=== PATIENT | male | born 1995 | race Asian ===

== ENCOUNTER 2017-06-21 20:34 | Emergency (ER) | payer OTHER ==
[2017-06-21 20:59] VITALS: BP 127/78
[2017-06-21] MEDS ORDERED: Lidocaine 2% VISCOUS* 15 ML UDC PO ONE (21:10)
[2017-06-21] MEDS ORDERED: Amoxicillin PO (*) 500 MG CAP PO ONE (21:11)
[2017-06-21] MEDS ORDERED: Ondansetron ODT TAB* 4 MG PO ONE (21:12)
[2017-06-21] MEDS ORDERED: Ondansetron ODT TAB* 4 MG ONE (21:19)
--- NOTE | 2017-06-21 21:19 | UC ---
Throat Pain/Nasal Santosh HPI - HPI Summary HPI Summary: Complains of subjective fever, body aches, nausea, sore throat, mild cough, mild ear pain, mild exertional SOB, mild SOLER 2 days. Denies neck stiffness, rash, CP, abdominal pain him a change in urine or BM. Medical history is none. - History of Current Complaint Chief Complaint: UCGeneralIllness Stated Complaint: SORE THROAT, ACHES, AND NAUSEA Time Seen by Provider: 06/21/17 20:37 Hx Obtained From: Patient Onset/Duration: Gradual Onset Severity: Mild Pain Intensity: 6 Pain Scale Used: 0-10 Numeric Cough: Nonproductive Associated Signs & Symptoms: Positive: Fever, Vomiting - Epiglottits Risk Factors Epiglottis Risk Factors: Negative - Allergies/Home Medications Allergies/Adverse Reactions: Allergies Allergy/AdvReac Type Severity Reaction Status Date / Time No Known Allergies Allergy Verified 06/21/17 20:59 Home Medications: Home Medications D-Methorphan/PE/Acetaminophen [Day Time Cold-Flu Liquid] 06/21/17 [History] Ibuprofen [Advil] 200 mg PO 06/21/17 [History] PMH/Surg Hx/FS Hx/Imm Hx - Surgical History Surgical History: None - Social History Alcohol Use: None Substance Use Type: None Smoking Status (MU): Never Smoked Tobacco Review of Systems Constitutional: Fever, Chills, Fatigue Skin: Negative Eyes: Negative ENT: Sore Throat, Nasal Discharge Respiratory: Shortness Of Breath, Cough Cardiovascular: Negative Gastrointestinal: Vomiting, Diarrhea, Nausea Genitourinary: Negative Motor: Negative Neurovascular: Negative Musculoskeletal: Myalgia Neurological: Negative Psychological: Negative All Other Systems Reviewed And Are Negative: Yes Physical Exam Triage Information Reviewed: Yes Appearance: Well-Appearing Vital Signs: Initial Vital Signs Temp 98.8 F 06/21/17 20:53 Pulse 106 06/21/17 20:53 Resp 18 06/21/17 20:53 BP 127/78 06/21/17 20:53 Pulse Ox 95 06/21/17 20:53 Vital Signs Reviewed: Yes Eye Exam: Normal Eyes: Positive: Conjunctiva Clear ENT: Positive: Pharyngeal erythema, Nasal drainage, TMs normal. Negative: Tonsillar exudate, Sinus tenderness Neck exam: Normal Respiratory Exam: Normal Cardiovascular Exam: Normal Abdominal Exam: Normal Musculoskeletal Exam: Normal Neurological Exam: Normal Psychological Exam: Normal Skin Exam: Normal Throat Pain/Nasal Course/Dx - Course Course Of Treatment: amox, zofran - Differential Dx/Diagnosis Provider Diagnoses: strep throat. nausea Discharge - Sign-Out/Discharge Documenting (check all that apply): Discharge/Admit/Transfer - Discharge Plan Condition: Stable Disposition: HOME Patient Education Materials: Strep Throat (ED), Acute Nausea and Vomiting (ED) Referrals: No Primary Care Phys,NOPCP [Primary Care Provider] - - Billing Disposition and Condition Condition: STABLE Disposition: HOME
== END 2017-06-21 21:25 | disposition home or self-care (01) ==
LOC: UCEAST 20:34
DX: J02.0 Streptococcal pharyngitis (principal); R11.2 Nausea with vomiting, unspecified
CPT/HCPCS: 87502; 87651; 99202; A9270-GY; G0463

== ENCOUNTER 2017-06-24 10:18 | Emergency (ER) | payer OTHER ==
[2017-06-24 10:27] VITALS: BP 140/77
--- NOTE | 2017-06-24 10:52 | UC ---
Throat Pain/Nasal Santosh HPI - HPI Summary HPI Summary: This is an otherwise healthy 21 yo male who was diagnosed with strep pharyngitis 06/21 by rapid strep testing and started on amoxicillin 500 mg twice daily and has been taking it as directed. His symptoms have become worse rather than better since initiating antibiotics. His ST is worse, fevers have been difficult to control. Very little po intake. He feels weak and faint. - History of Current Complaint Chief Complaint: UCRespiratory Stated Complaint: SORE THROAT Pain Intensity: 8 - Allergies/Home Medications Allergies/Adverse Reactions: Allergies Allergy/AdvReac Type Severity Reaction Status Date / Time No Known Allergies Allergy Verified 06/24/17 10:27 PMH/Surg Hx/FS Hx/Imm Hx Previously Healthy: Yes - Surgical History Surgical History: None - Family History Known Family History: Positive: None - Social History Alcohol Use: None Substance Use Type: None Smoking Status (MU): Never Smoked Tobacco Review of Systems Constitutional: Fever, Chills, Fatigue Skin: Negative Eyes: Negative ENT: Sore Throat Respiratory: Negative Cardiovascular: Negative Gastrointestinal: Negative Genitourinary: Negative Motor: Negative Neurovascular: Negative Musculoskeletal: Negative Neurological: Negative Psychological: Negative Is Patient Immunocompromised?: No All Other Systems Reviewed And Are Negative: Yes Physical Exam Triage Information Reviewed: Yes Appearance: Ill-Appearing Vital Signs: Initial Vital Signs Temp 100.3 F 06/24/17 10:22 Pulse 94 06/24/17 10:22 Resp 18 06/24/17 10:22 BP 140/77 06/24/17 10:22 Pulse Ox 100 06/24/17 10:22 Vital Signs Reviewed: Yes ENT: Positive: Pharyngeal erythema, Tonsillar swelling, Tonsillar exudate Neck: Positive: Supple, Tenderness @ - cervical nodes, Enlarged Nodes @ - anterior cervical Respiratory: Positive: Lungs clear, Normal breath sounds. Negative: Crackles, Rhonchi, Wheezing Cardiovascular: Positive: RRR, No Murmur Musculoskeletal Exam: Normal Neurological Exam: Normal Psychological Exam: Normal Skin Exam: Normal Throat Pain/Nasal Course/Dx - Course Course Of Treatment: 21 yo male with recent diagnosis of strep pharyngitis with worsening symptoms despite appropriate antibiotics. Recommend proceeding the ER for IV fluids, imaging to eval for peritonsillar abscess, blood cultures and throat culture to eval for resistent organism. He is accompanied by his mother who will drive and is in agreement with plan. - Differential Dx/Diagnosis Differential Diagnosis/HQI/PQRI: Laryngitis, Peritonsillar Abscess, Pharyngitis , Tonsillitis Provider Diagnoses: 1. Strep pharyngitis with possible peritonsillar abscess Discharge - Sign-Out/Discharge Documenting (check all that apply): Discharge/Admit/Transfer - Discharge Plan Condition: Stable Disposition: HOME Patient Education Materials: Tonsillitis (ED) Referrals: No Primary Care Phys,NOPCP [Primary Care Provider] - Additional Instructions: PLEASE PROCEED TO THE EMERGENCY DEPARTMENT FOR EVALUATION OF PERITONSILLAR ABSCESS - Billing Disposition and Condition Condition: STABLE Disposition: HOME
== END 2017-06-24 10:49 | disposition home or self-care (01) ==
LOC: UCEAST 10:18
DX: J02.0 Streptococcal pharyngitis (principal)
CPT/HCPCS: 99212; G0463

== ENCOUNTER 2017-06-24 11:06 | Observation (INO) | payer OTHER ==
[2017-06-24 11:44] LABS: Hematocrit 44 % (42-52); Hemoglobin 15.1 g/dl (14.0-18.0); Mean Corpuscular HGB Conc 34 g/dl (31-36); Mean Corpuscular Hemoglobin 30 pg (27-31); Mean Corpuscular Volume 88 fL (80-94); Mean Platelet Volume 7.9 um3 (7.4-10.4); Platelet Count 172 10^3/ul (150-450); Red Blood Count 5.01 10^6/ul (4.0-5.4); Red Cell Distribution Width 13 % (10.5-15)
[2017-06-24] MEDS ORDERED: NS 0.9% 1000 ML* 1,000 ML IV ONE (11:45)
[2017-06-24] MEDS ORDERED: Ketorolac INJ* 30 MG/ML 1 ML VIAL IV PUSH ONE (11:45)
[2017-06-24] MEDS ORDERED: methylPREDNISolone 125 MG* 2 ML VIAL IV ONE (11:45)
[2017-06-24] MEDS ORDERED: cefTRIAXone(*) 1 GM in NS 0.9% 50 ML* 50 ML IVPB ONE (11:51)
[2017-06-24 12:00] LABS: EGFR Non-African American 113.4 (>60)
[2017-06-24 12:06] LABS: ABS Basophils 0 10^3/ul (0-0.2); ABS Eosinophils 0 10^3/ul (0-0.6); ABS Lymphocytes 1.2 10^3/ul (1.0-4.8); ABS Monocytes 1.7 10^3/ul (0-0.8); ABS Nucleated RBC 0 10^3/ul; Eosinophil % 0.2 % (0-6); Lymphocyte % 8.4 % (25-47); Nucleated Red Blood Cells % 0
[2017-06-24] MEDS ORDERED: Azithromycin TAB* 250 MG PO ONE (12:33)
[2017-06-24] MEDS ORDERED: PROCHLORPERAZINE INJ 5 MG/ML 2 ML VIAL IV ONE (13:32)
[2017-06-24] MEDS ORDERED: Metoclopramide IV* 5 MG/ML 2 ML VIAL IV ONE (13:34)
[2017-06-24] MEDS ORDERED: Metoclopramide IV* 5 MG/ML 2 ML VIAL ONE (13:35)
[2017-06-24] MEDS ORDERED: Iohexol 300* (CONTRAST) 10 ML SDV IV ONE (13:42)
--- NOTE | 2017-06-24 14:33 | RAD ---
INDICATION: Tonsillitis x2 weeks. COMPARISON: There are no prior studies available for comparison. TECHNIQUE: A CT scan of the neck was performed with intravenous contrast following intravenous injection of 50 ml of Omnipaque 300 nonionic contrast. Contiguous axial sections were obtained from the skull base through the lung apices. Images were reconstructed in the coronal and sagittal planes. FINDINGS: The tonsils appear enlarged bilaterally and nearly touch in the midline. No abscess is seen. The main portion of the epiglottis appears normal in size although the aryepiglottic folds appear thickened suggesting the possibly of early epiglottitis. No retropharyngeal soft tissue swelling is seen. There are mildly enlarged bilateral internal jugular chain lymph nodes measuring up to 1.3 cm in transverse dimension in the upper portion of the neck. The parotid and submandibular glands appear to be within normal limits. The thyroid gland appears normal. The lung apices appear clear. The paranasal sinuses and mastoid air cells appear clear. No significant focal osseous abnormality is seen. IMPRESSION: 1. THE TONSILS ARE ENLARGED, NO ABSCESS IS SEEN. 2. THERE IS THICKENING OF THE ARYEPIGLOTTIC FOLDS SUGGESTING THE POSSIBILITY OF EARLY EPIGLOTTITIS. 3. MILDLY ENLARGED BILATERAL INTERNAL JUGULAR CHAIN LYMPH NODES.
[2017-06-24] MEDS ORDERED: Acetaminophen TAB* 325 MG PO PRN (15:22)
[2017-06-24] MEDS ORDERED: Albuterol 2.5 MG/3 ML NEB.SOL* (0.083%) INH PRN (15:22)
[2017-06-24] MEDS ORDERED: Ondansetron TAB* 4 MG PO PRN (15:26)
[2017-06-24] MEDS ORDERED: Ibuprofen TAB* 200 MG PO PRN (15:26)
[2017-06-24] MEDS ORDERED: NS 0.9% 1000 ML* 1,000 ML IV SCH (15:30)
--- NOTE | 2017-06-24 17:02 | ED ---
Throat Pain/Nasal Congestion - HPI Summary HPI Summary: Patient here with worsening of sore throat and swelling past 3 days despite starting amoxicillin. He was seen on June 21 [facility] and diagnosed with strep throat. He's been taking amoxicillin since however his throat pain and swelling continue to worsen. Today his voice is slightly muffled and he has a fever of 101 at triage. He had a fever of 103 Fahrenheit yesterday. He also complains of headache general achiness and decreased appetite. He has not had antipyretic prior to arrival. He is not been able to eat much however his mom is here to visit him now that he sick and she is making him drink water as much as he can. Furthermore he admits that he engages in oral sex with men. Reports every time he hooks up with a new partner he gets a sore throat the last for a few days to a week. He treats it with ibuprofen and it seems to improve. He's had sore throat on and off over the last 4 weeks with this pattern and has had no testing for his sore throat. Admits as well to oral and anal sex. - History of Current Complaint Chief Complaint: EDThroatPain Time Seen by Provider: 06/24/17 11:30 Hx Obtained From: Patient - Allergies/Home Medications Allergies/Adverse Reactions: Allergies Allergy/AdvReac Type Severity Reaction Status Date / Time No Known Allergies Allergy Verified 06/24/17 11:12 Home Medications: Home Medications Acetaminophen TAB* [Tylenol TAB*] 650 mg PO Q6H PRN 06/24/17 [History Confirmed 06/24/17] Ibuprofen TAB* [Advil TAB*] 400 mg PO Q8H PRN 06/24/17 [History Confirmed ] Ondansetron TAB* [Zofran 4 MG Tab*] 4 mg PO Q6H PRN 06/24/17 [History Confirmed 06/24/17] PMH/Surg Hx/FS Hx/Imm Hx Previously Healthy: Yes Endocrine/Hematology History: Denies: Hx Diabetes, Autoimmune Disease Cardiovascular History: Denies: Hx Hypertension History: Denies: Hx Renal Disease - Immunization History Immunizations Up to Date: Yes Infectious Disease History: No Infectious Disease History: Denies: Traveled Outside the [place] in Last 30 Days - Family History Known Family History: Positive: None - Social History Occupation: Student - [employer] Lives: Dormitory/Roommates Alcohol Use: None Hx Substance Use: No Substance Use Type: Reports: None Hx Tobacco Use: No Smoking Status (MU): Never Smoked Tobacco Review of Systems Positive: Fever, Chills, Fatigue Eyes: Negative Positive: Sore Throat, Ear Ache. Negative: Epistaxis, Dental Pain, Nasal Discharge Cardiovascular: Negative Respiratory: Negative Positive: Nausea Genitourinary: Negative Negative: burning, dysuria, discharge, frequency Musculoskeletal: Other - generalized achiness Skin: Negative Positive: Headache. Negative: Weakness, Paresthesia, Numbness, Syncope, Slurred Speech Psychological: Normal All Other Systems Reviewed And Are Negative: Yes Physical Exam Triage Information Reviewed: Yes Vital Signs On Initial Exam: Initial Vitals Temp Pulse Resp BP Pulse Ox 101.3 F 100 16 126/75 98 06/24/17 11:09 06/24/17 11:09 06/24/17 11:09 06/24/17 11:09 06/24/17 11:09 Vital Signs Reviewed: Yes Appearance: Positive: Well-Nourished, Pain Distress - Mild to moderate Skin: Positive: Warm, Skin Color Reflects Adequate Perfusion, Dry Head/Face: Positive: Normal Head/Face Inspection Eyes: Positive: Normal, EOMI, Conjunctiva Clear. Negative: Conjunctiva Inflammed, Discharge ENT: Positive: Hearing grossly normal, TMs normal, Tonsillar swelling, Tonsillar exudate, Trismus, Muffled voice, Uvula midline. Negative: Nasal congestion, Sinus tenderness Neck: Positive: Supple, Tenderness @, Enlarged Nodes @ - Submandibular glands bilaterally Respiratory/Lung Sounds: Positive: Clear to Auscultation, Breath Sounds Present. Negative: Rales, Rhonchi, Stridor, Tracheal Deviation, Wheezes Cardiovascular: Positive: Tachycardia, S1, S2. Negative: Murmur, Rub Abdomen Description: Positive: Nontender, No Organomegaly, Soft Bowel Sounds: Positive: Present Musculoskeletal: Positive: Normal, Strength/ROM Intact Neurological: Positive: Normal, Sensory/Motor Intact, Alert, Oriented to Person Place, Time, CN Intact II-III Psychiatric: Positive: Normal - Concerned but calm, pleasant, cooperative Diagnostics - Vital Signs Vital Signs Temp Pulse Resp BP Pulse Ox 06/24/17 15:00 80 95 06/24/17 14:46 90 127/74 97 06/24/17 14:15 96 130/79 97 06/24/17 13:45 92 111/73 96 06/24/17 13:36 97.1 F 06/24/17 13:15 88 133/76 96 06/24/17 13:01 91 97 06/24/17 12:45 90 139/77 100 06/24/17 12:15 83 136/71 97 06/24/17 12:00 86 96 06/24/17 11:45 84 135/73 96 06/24/17 11:09 101.3 F 100 16 126/75 98 - Laboratory Lab Results: Lab Results 06/24/17 06/24/17 06/24/17 Range/Units 11:36 11:36 11:36 WBC 14.0 H (3.5-10.8) 10^3/ul RBC 5.01 (4.0-5.4) 10^6/ul Hgb 15.1 (14.0-18.0) g/dl Hct 44 (42-52) % MCV 88 (80-94) fL MCH 30 (27-31) pg MCHC 34 (31-36) g/dl RDW 13 (10.5-15) % Plt Count 172 (150-450) 10^3/ul MPV 7.9 (7.4-10.4) um3 Neut % (Auto) 78.6 (38-83) % Lymph % (Auto) 8.4 L (25-47) % [place] % (Auto) 12.5 H (0-7) % Eos % (Auto) 0.2 (0-6) % Baso % (Auto) 0.3 (0-2) % Absolute Neuts (auto) 11.0 H (1.5-7.7) 10^3/ul Absolute Lymphs (auto) 1.2 (1.0-4.8) 10^3/ul Absolute Monos (auto) 1.7 H (0-0.8) 10^3/ul Absolute Eos (auto) 0 (0-0.6) 10^3/ul Absolute Basos (auto) 0 (0-0.2) 10^3/ul Absolute Nucleated RBC 0 10^3/ul Nucleated RBC % 0 Sodium 135 L (139-145) mmol/L Potassium 3.9 (3.5-5.0) mmol/L Chloride 100 L (101-111) mmol/L Carbon Dioxide 26 (22-32) mmol/L Anion Gap 9 (2-11) mmol/L BUN 9 (6-24) mg/dL Creatinine 0.86 (0.67-1.17) mg/dL Est GFR ( Amer) 145.8 (>60) Est GFR (Non-Af Amer) 113.4 (>60) BUN/Creatinine Ratio 10.5 (8-20) Glucose 108 H (70-100) mg/dL Lactic Acid 1.0 (0.5-2.0) mmol/L Calcium 9.4 (8.6-10.3) mg/dL Total Bilirubin 0.70 (0.2-1.0) mg/dL AST 17 (13-39) U/L ALT 16 (7-52) U/L Alkaline Phosphatase 82 (34-104) U/L C-Reactive Protein 157.25 H (< 5.00) mg/L Total Protein 7.6 (6.4-8.9) g/dL Albumin 4.1 (3.2-5.2) g/dL Globulin 3.5 (2-4) g/dL Albumin/Globulin Ratio 1.2 (1-3) Monoscreen Negative (Negative) Result Diagrams: 06/24/17 11:36 06/24/17 11:36 Lab Statement: Any lab studies that have been ordered have been reviewed, and results considered in the medical decision making process. Re-Evaluation - Re-Evaluation First Eval Change: Improved - Sore throat and swelling as well as voice all improved after [place] Medrol, Toradol, normal saline and ceftriaxone. He then developed abdominal pain and nausea after taking 1 g of azithromycin as well as eating - developed a sweat. Reglan was then ordered. Second Eval Change: Improved - Patient's temp decreased from 101F to 97.1F. Nausea dissipated and abdominal pain resolved after Reglan. He appears to be in good spirits and voice continues to be clear. EENT Course/Dx - Course Course Of Treatment: Patient presents with 4 week history of sore throat intermittently after oral sex however admits it's been worse the past 3 days despite taking amoxicillin for culture positive strep throat. His presentation today includes fever with mild tachycardia throat fullness and pain along with muffled voice. Clinically he improved with site Medrol, Toradol, normal saline and a combination of ceftriaxone with azithromycin to cover gonorrhea and chlamydia given his history of present illness. A CT was ordered to better assess the extensiveness of his pathology as it's been progressing over the past 4 weeks. This report indicates no abscess however he does have " thickening of the periapical lateral fold suggesting the possibility of early epiglottitis... Mildly enlarged bilateral internal jugular chain lymph nodes". Discussed with Dr. landis who agrees to admit patient for observation here at [facility]. Discussed with patient and mother who also agree with an overnight observation. Condition: Stable and improved. Disposal admit - Diagnoses Provider Diagnoses: Tonsillitis, Epiglottitis, Strep pharyngitis Discharge - Sign-Out/Discharge Documenting (check all that apply): Discharge/Admit/Transfer - Discharge Plan Condition: Stable Disposition: ADMITTED TO [facility] - Billing Disposition and Condition Condition: STABLE Disposition: [facility]
[2017-06-24] MEDS: Heparin VIAL(*) 5000 UNITS/ML VIAL (FIVE THOUSAND) SUBCUT SCH (20:41)
--- NOTE | 2017-06-24 21:43 | HP ---
CC: [facility] * HISTORY AND PHYSICAL: DATE OF ADMISSION: 06/24/17 PRIMARY CARE PROVIDER: [facility]. CHIEF COMPLAINT: Sore throat and fever. 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 He had been taking Augmentin for the past 3 days as prescribed. He still continues to have sore throat and fever. When he came into the hospital, his fever was [address] of the neck showed enlarged tonsils but no abscess. There was also thickening of the epiglottic folds suggesting the possibility of early epiglottitis. At this time, the patient was advised by the ED provider to come to the hospital for observation. PAST MEDICAL HISTORY: None. The patient has never been hospitalized. MEDICATIONS: 1. Zofran 4 mg every 6 hours p.r.n. 2. Ibuprofen 400 mg every 6 hours p.r.n. 3. Amoxicillin 500 mg every 12 hours. 4. Acetaminophen on a p.r.n. basis. ALLERGIES: No known drug allergies. FAMILY HISTORY: Negative for heart disease or diabetes. The patient's mother is a registered nurse. SOCIAL HISTORY: The patient is a 3rd year of [employer]. He is single. He is homosexual. He denies any tobacco, alcohol, or drug use. REVIEW OF SYSTEMS: Please see history of present illness. The patient stated that it is mildly hard for him to swallow, but he has had no issues with p.o. intake. He had been nauseated but not vomiting. He has had fevers for the past several days despite antibiotic treatments for 3 days. He denies any diarrhea. He has had no problems with dyspnea or wheezing. His mother states that he appears to snore when he sleeps. The patient noted that when talking with the ER provider that he had sexual intercourse with a male partner several weeks ago and he performed oral sex that was unprotected. The patient denies any cough. States that he sometimes "clears his throat." All the remaining 12 systems were reviewed with the patient and were otherwise negative. PHYSICAL EXAMINATION GENERAL: The patient is a pleasant 21-year-old male, who is in no acute distress. Alert, awake, and oriented x3. VITAL SIGNS: Blood pressure of 157/74, heart rate of 90 and regular, respiratory rate 16, oxygen saturation 97% on room air, temperature maximum of 101.3. HEENT: Head: Atraumatic, normocephalic. Eyes: Pupils equal and reactive to light and accommodation. Oropharynx with tonsillar enlargement bilaterally. Erythema and exudates bilaterally. Despite the tonsillar enlargement, there is no airway compromise whatsoever during the evaluation. Mucous membranes are moist. NECK: Supple. No JVD. No palpable adenopathy. There is some mild tenderness on palpation in the patient's submandibular area bilaterally. RESPIRATORY: Clear to auscultation bilaterally. ABDOMEN: Soft, nontender. Bowel sounds are present in all 4 quadrants. EXTREMITIES: There is no edema. Pulses are +2 bilaterally. No clubbing or cyanosis. NEURO: Speech clear. Cranial nerves II through XII grossly intact. Motor strength is 5/5 bilaterally. PSYCHIATRIC: Oriented x3, but no evidence of anxiety or depression. SKIN: On evaluation of the skin, no ecchymotic areas or rashes noted. DIAGNOSTIC STUDIES/LAB DATA: Showed sodium of 135, potassium 3.9, chloride 100 , carbon dioxide 26, BUN 9, creatinine 0.86. Liver function tests were unremarkable. of 157. White cell count of 14.0, hemoglobin of 15.1, hematocrit of 44, and platelets of 172. The patient's rapid group A strep was positive on 06/21/17. The patient's throat swab for Neisseria gonorrhea and chlamydia trachomatis is pending at the time of dictation. CT of the neck, impression: "The tonsils are enlarged with no abscess seen. There is thickening of the area of epiglottic folds suggestive of the possibility of early epiglottitis. Mildly enlarged bilateral anterior jugular chain lymph nodes". ASSESSMENT AND PLAN: 1. Bilateral strep A throat with tonsillitis and epiglottitis. At this point, there is no evidence of airway compromise. There is no stridor on auscultation of the patient's neck. The patient has not had any symptoms of shortness of breath. At this point, the patient already received Solu-Medrol 125 mg once and he is going to be continued on prednisone 50 mg daily beginning tomorrow. Ceftriaxone was already administered in the hospital's ER and is going to be continued on a daily basis. We will prescribe nebulizers on a p.r.n. basis but currently the patient is not wheezing. 2. For DVT prophylaxis, the patient is low risk and is going to be encouraged with ambulation. 3. Please also note that possibility of sexually transmitted disease related to tonsillitis is being considered. Swabs are pending at the time of dictation. Ceftriaxone and azithromycin were administered as a treatment in the emergency room. 4. The patient's code status is full and his surrogate is his mother. TIME SPENT: Approximately 55 minutes was spent on admission of this patient, more than half that time was spent [id number] with the patient during the interview and history and physical exam. [id number]/[facility] #: [id number] MTDD
[2017-06-25] MEDS: Heparin VIAL(*) 5000 UNITS/ML VIAL (FIVE THOUSAND) SUBCUT SCH (05:47)
[2017-06-25 08:18] VITALS: BP 133/73
[2017-06-25] MEDS ORDERED: predniSONE TAB* 50 MG PO SCH (09:00)
[2017-06-25] MEDS ORDERED: cefTRIAXone(*) 1 GM in NS 0.9% 50 ML* 50 ML IVPB SCH ×2 (12:00→13:00)
--- NOTE | 2017-06-26 08:30 | DS ---
CC: [facility]* DISCHARGE SUMMARY: DATE OF ADMISSION: 06/24/17 DATE OF DISCHARGE: 06/25/17 PRIMARY CARE PROVIDER: [facility]. DISCHARGE DIAGNOSES: 1. Possible mild epiglottitis. 2. Strep A pharyngitis and tonsillitis. MEDICATIONS AT DISCHARGE: Include: 1. Cefdinir 300 mg p.o. 2 times a day for a total of 7 days. 2. Prednisone 50 mg daily for a total of 4 days. 3. Ibuprofen on a p.r.n. basis. 4. Zofran on a p.r.n. basis. 5. Acetaminophen on a p.r.n. basis. HOSPITALIZATION COURSE: Edi Berman is a 21-year-old male, who was admitted for overnight observation with fever, complaints of sore throat and CT showing possibility of mild epiglottitis. The patient had tonsillar exudates on evaluation and increased erythema. He was febrile despite taking an Augmentin for 2 days prior to admission. The patient was diagnosed with strep A throat 3 days prior. He was placed on overnight observation. He never developed any airway compromise and by the time of discharge he feels much better. He is going to be discharged home with recommendation to follow up with his primary care provider in approximately 2 to 4 days. PHYSICAL EXAMINATION: At discharge, blood pressure of 133/73, heart rate of 82 and regular, respiratory rate 16, oxygen saturation 99% on room air, temperature of 99.2. General: The patient is a very pleasant 21-year-old male , who is in no acute distress. Alert, awake, and oriented x3. HEENT: Head: Atraumatic, normocephalic. Eyes: Pupils are equal, reactive to light and accommodation. Oropharynx with tonsillar enlargement and white exudates noted. The erythema that was present previously resolved. There was no airway compromise. Mucosa moist. Neck: Supple. No JVD. No bruits bilaterally. Cardiovascular: Regular rate and rhythm. No murmur. Respiratory: Clear to auscultation bilaterally. Abdomen: Soft, nontender. Bowel sounds are present in all 4 quadrants. Extremities: There is no edema. Pulses are +2 bilaterally. No clubbing or cyanosis. Neuro Evaluation: Speech is clear. Cranial nerves II through XII grossly intact. Motor strength is 5/5 bilaterally. LABORATORY DATA: At discharge, please note that the patient's mono screen was negative. Strep A was positive on 06/21/17. Throat swab for Chlamydia trachomatis and Neisseria gonorrhea is pending at the time of this dictation, but the patient was already treated prophylactically in the emergency department on the day of admission. [id number]/[facility] #: [id number] GARRETT
== END 2017-06-25 13:30 | disposition home or self-care (01) ==
LOC: ED 11:06 → MEDTELE 15:22
PROVIDERS: ADMIT Internal Medicine; ATTEND Internal Medicine
DX: J02.0 Streptococcal pharyngitis (principal); J04.0 Acute laryngitis; B95.0 Streptococcus, group A, as the cause of diseases classified elsewhere; Z79.899 Other long term (current) drug therapy
CPT/HCPCS: 36415; 70491; 80053; 83605; 85025; 86140; 86308; 87491; 87591; 96365; 96366; 96375; 99283; A9270-GY; G0378; J0696; J1885; J2765; J2930; J7512; Q9967